=== PATIENT | male | born 1940 | race Asian ===

== ENCOUNTER → 2016-05-04 | Outpatient (CLI) | payer OTHER ==
[~2016-05-04] MED LIST: ALLO300T2 PO; ATEN-171 PO; GLC500 PO; GLIP2.5T11 PO; HYDR-4079 PO; LISI10TA PO; LRS10 PO; NRN/300 PO; PANT1TAB48 PO; POTA-335 PO; TAMS0.4C59 PO
[2016-05-04 12:48] LABS: BASO % 0.6 %; BASO ABS # 0.04 K/uL (0-0.2); COMPLETE YES; EOS % 1.7 %; HEMATOCRIT 43.8 % (42-52); IG% 0.3 %; LYMPH % 24.7 %; LYMPH ABS # 1.79 K/uL (1.2-3.4); MEAN CELL VOLUME 84.9 fL (80-100); MEAN CORPUSCULAR HEMOGLOBIN 29.8 pg (25-34); MEAN CORPUSCULAR HGB CONC 35.2 g/dl (32-36); MEAN PLATELET VOLUME 9.5 fL (7.4-10.4); MONO % 8.8 %; NEUT % 63.9 %; PLATELET COUNT 264 K/uL (130-400); RED BLOOD COUNT 5.16 M/uL (4.7-6.1); WHITE BLOOD COUNT 7.26 K/uL (4.8-10.8)
[2016-05-04 13:07] LABS: ESTIMATED AVERAGE GLUCOSE 126 mg/dl; HA1C FLAG Normal (Normal)
[2016-05-04 13:12] LABS: BLOOD UREA NITROGEN 24 mg/dl (7-18); BUN/CREATININE RATIO 19.8 (10-20); CALCIUM 9.3 mg/dl (8.5-10.1); CARBON DIOXIDE 29 mmol/L (21-32); CHLORIDE 103 mmol/L (98-107); GLUCOSE 137 mg/dl (70-99); POTASSIUM 3.6 mmol/L (3.5-5.1); SODIUM 140 mmol/L (136-145)
== END | disposition home or self-care (01) ==
LOC: C.LABPBG 10:49
PROVIDERS: ATTEND Internal Medicine Geriatric Medicine
DX: M19.90 Unspecified osteoarthritis, unspecified site (principal); I10 Essential (primary) hypertension; E11.9 Type 2 diabetes mellitus without complications; E78.5 Hyperlipidemia, unspecified; M10.9 Gout, unspecified; K27.9 Peptic ulcer, site unspecified, unspecified as acute or chronic, without hemorrhage or perforation

== ENCOUNTER → 2016-06-16 | Outpatient (CLI) | payer OTHER ==
[~2016-06-16] MED LIST changes: -GLC500 PO
[2016-06-16 11:03] LABS: CHOLESTEROL/HDL RATIO 5.9
== END | disposition home or self-care (01) ==
LOC: C.LABBC 08:21
PROVIDERS: ATTEND Physician Assistant Medical
DX: E11.9 Type 2 diabetes mellitus without complications (principal)

== ENCOUNTER → 2016-11-09 | Outpatient (CLI) | payer OTHER ==
[~2016-11-09] MED LIST changes: -NRN/300 PO
== END | disposition home or self-care (01) ==
LOC: C.PATHSPEC 08:31
PROVIDERS: ATTEND Internal Medicine Geriatric Medicine
DX: L57.0 Actinic keratosis (principal)

== ENCOUNTER → 2016-11-10 | Outpatient (CLI) | payer OTHER ==
[2016-11-10 12:47] LABS: BLOOD UREA NITROGEN 18 mg/dl (7-18); BUN/CREATININE RATIO 17.5 (10-20); CALCIUM 9.6 mg/dl (8.5-10.1); CARBON DIOXIDE 29 mmol/L (21-32); CHLORIDE 103 mmol/L (98-107); CHOLESTEROL 168 mg/dl (0-200); GLUCOSE 128 mg/dl (70-99); POTASSIUM 3.8 mmol/L (3.5-5.1); SODIUM 139 mmol/L (136-145); TRIGLYCERIDES 359 mg/dl (0-150); VERY LOW DENSITY LIPOPROT CALC 72 mg/dl
[2016-11-10 12:57] LABS: CHOLESTEROL/HDL RATIO 5.4; HDL CHOLESTEROL 31 mg/dl; LDL CHOLESTEROL CALCULATED 65 mg/dl
[2016-11-10 13:30] LABS: URINE PROTIEN/CREAT RATIO 0.1 (0-0.2); URINE TOTAL PROTEIN 13.4 mg/dl (0-11.9)
[2016-11-10 13:50] LABS: ESTIMATED AVERAGE GLUCOSE 157 mg/dl; HA1C FLAG Normal (Normal)
== END | disposition home or self-care (01) ==
LOC: C.LABPBG 08:49
PROVIDERS: ATTEND Internal Medicine Geriatric Medicine
DX: I10 Essential (primary) hypertension (principal); E11.9 Type 2 diabetes mellitus without complications; M54.2 Cervicalgia; E78.5 Hyperlipidemia, unspecified; M48.02 Spinal stenosis, cervical region

== ENCOUNTER 2017-02-25 10:51 | Emergency (ER) | payer OTHER ==
[~2017-02-25] VITALS: Ht 175.3 cm; Wt 79.9 kg
[~2017-02-25 10:51] MED LIST changes: +PANT1TAB3 PO; -PANT1TAB48 PO
[2017-02-25 10:56] VITALS: TEMP 36.6; Ht 175.3 cm; Wt 79.9 kg
[2017-02-25] MEDS ORDERED: ATEN50TA21 PO (11:03)
[2017-02-25] MEDS ORDERED: BACL10TA PO (11:03)
[2017-02-25] MEDS ORDERED: AMR2 PO (11:03)
[2017-02-25] MEDS ORDERED: POTA20TA13 PO (11:03)
[2017-02-25] MEDS ORDERED: OXYC-106 PO (11:03)
--- NOTE | 2017-02-25 11:55 | EMERGENCY ROOM VISIT NOTE ---
History Report prepared by Frandy: Elliott Saucedo Under the Supervision of: Dr. Ravin Huang M.D. First contact with patient: 11:46 Chief Complaint: ABDOMINAL PAIN Stated Complaint: STOMACH PAIN X3 DAYS Nursing Triage Summary: pt reports abdominal pain X 3 days intermittently denies NVD History of Present Illness The patient is a 76 year old male who presents to the Emergency Room with complaints of severe, intermittent abdominal pain beginning three days ago. The patient states he has never had these symptoms before. He reports he has tried Valium and Percocet for pain, but it is not helping. The patient denies blood in his stool, trouble urinating, history of diverticulitis, and a history of abdominal surgeries. He notes he still has his appendix and gallbladder. Source of History: patient Onset: three days ago Position: abdomen Symptom Intensity: severe Timing: intermittent Associated Symptoms: No urinary symptoms Note: Denies: blood in stool Review of Systems See HPI for pertinent positives & negatives. A total of 10 systems reviewed and were otherwise negative. 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 Social History Smoking Status: Never Smoker Marital Status: Occupation Status: employed Current/Historical Medications Scheduled Allopurinol (Zyloprim), 300 MG PO DAILY Atenolol & Chlorthalidone (Tenoretic 50MG/25MG), 1 TAB PO DAILY Baclofen (Lioresal), 10 MG PO DAILY Glimepiride (Glimepiride), 1 MG PO DAILY Lisinopril (Prinivil), 10 MG PO DAILY Potassium Chloride Microencaps (Potassium Chloride Er), 20 MEQ PO DAILY Tamsulosin Hcl (Flomax), 0.4 MG PO QPM Scheduled PRN Oxycodone/Acetaminophen 10MG/325MG (Percocet 10MG/325MG), 1 TAB PO Q6 PRN for Pain Pantoprazole (Protonix), 40 MG PO BID PRN for Indigestion Allergies Coded Allergies: Sulfa Drugs (Unverified Allergy, Mild, 02/25/17) Sulfamethoxazole (Unverified Allergy, Mild, 02/25/17) Trimethoprim (Unverified Allergy, Mild, 02/25/17) Gentamicin (Verified Allergy, Unknown, ., 02/25/17) Uncoded Allergies: [id number] (Allergy, Mild, 12/09/14) [id number] (Allergy, Mild, 12/09/14) [id number] (Allergy, Mild, 12/09/14) [id number] (Allergy, Unknown, ., 12/09/14) Physical Exam Vital Signs Date Time Temp Pulse Resp B/P (MAP) Pulse Ox O2 Delivery O2 Flow Rate FiO2 02/25/17 14:07 69 18 148/80 98 Room Air 02/25/17 12:10 83 18 153/103 97 Room Air 02/25/17 10:56 36.6 84 18 170/88 97 Room Air Physical Exam GENERAL: Patient is a healthy-appearing well-nourished 76 year old male. HEAD: Normocephalic atraumatic EYES: Ocular movements intact pupils equal and react to light OROPHARYNX mucous membranes are moist no exudates present no erythema or edema present NECK: Supple no nuchal rigidity CHEST: Good equal expansion LUNGS: Clear and equal to auscultation CARDIAC: Normal S1 and S2 ABDOMEN: Soft nontender no guarding BACK: No CVA tenderness EXTREMITIES: No pain upon palpation normal muscle strength in all groups no clubbing cyanosis or edema NEURO: Patient is following commands and answering questions appropriately. Alert and oriented x3 Cranial Nerves 2-12 grossly intact Medical Decision & Procedures ER Provider Diagnostic Interpretation: Radiology results as stated below per my review and radiologist interpretation: ABD/PELVIS WITHOUT FOR STONE HISTORY: 76 years-old Male Pt c/o left sided flank pain acute left-sided flank pain COMPARISON: None available TECHNIQUE: Multiple axial CT images of the abdomen and pelvis were obtained without contrast. A dose lowering technique was used consistent with the principals of ALARA. FINDINGS: Lung bases are generally clear with minimal linear subsegmental atelectasis or scarring of the left lung base. There is no pneumatosis or pneumoperitoneum identified. Imaged inferior cardiac chambers are unremarkable with coronary arterial disease. Mild fatty infiltration of the liver. Nonspecific calcification of the posterior right hepatic lobe. Indeterminate 8 mm low attenuating lesion of the hepatic dome suggests possible hepatic cyst. Spleen, gallbladder and right adrenal gland are unremarkable. Punctate calcification of the left adrenal gland may reflect prior hemorrhage. There is at least moderate diffuse pancreatic atrophy. 2.9 cm low attenuating lesion of the interpolar left kidney laterally suggests cyst with similar appearing 1.4 cm lesion noted within the superior pole. There is no renal calculi or hydronephrosis. Bilateral ureters are within normal limits. Urinary bladder is partially collapsed. The prostate is mildly enlarged. Moderate atherosclerosis of the aorta. Tortuosity of the aorta without definite aneurysm. Small duodenal diverticulum. No bowel obstruction or focal bowel wall thickening identified. Mild sigmoid diverticulosis without diverticulitis. Scattered air-fluid levels are noted throughout the large bowel. The appendix appears normal. Soft tissues are unremarkable. Heterogeneous appearance of the bones with severe multilevel discogenic degenerative changes of the lumbar spine. IMPRESSION: 1. No acute intra-abdominal or intrapelvic abnormality identified, specifically no renal calculi or hydronephrosis. 2. No bowel obstruction. 3. Prostamegaly. 4. Mild fatty infiltration of the liver. 5. Mild colonic diverticulosis without diverticulitis. 6. Additional findings as above. The above report was generated using voice recognition software. It may contain grammatical, syntax or spelling errors. Electronically signed by: Juan Alberto Gunderson M.D. 02/25/2017 1:19 PM Dictated Date/Time: 02/25/2017 1:11 PM Laboratory Results 02/25/17 11:10 Red Blood Count 5.15, Mean Corpuscular Volume 85.4, Mean Corpuscular Hemoglobin 30.7, Mean Corpuscular Hemoglobin Concent 35.9, Mean Platelet Volume 9.4, Neutrophils (%) (Auto) 71.0, Lymphocytes (%) (Auto) 19.0, Monocytes (%) (Auto) 7.7, Eosinophils (%) (Auto) 1.7, Basophils (%) (Auto) 0.3, Neutrophils # (Auto) 6.15, Lymphocytes # (Auto) 1.65, Monocytes # (Auto) 0.67, Eosinophils # (Auto) 0.15, Basophils # (Auto) 0.03 02/25/17 11:10 Test 02/25/17 11:10 02/25/17 12:11 02/25/17 12:21 White Blood Count 8.68 K/uL (4.8-10.8) Red Blood Count 5.15 M/uL (4.7-6.1) Hemoglobin 15.8 g/dL (14.0-18.0) Hematocrit 44.0 % (42-52) Mean Corpuscular Volume 85.4 fL (80-100) Mean Corpuscular Hemoglobin 30.7 pg (25-34) Mean Corpuscular Hemoglobin Concent 35.9 g/dl (32-36) Platelet Count 206 K/uL (130-400) Mean Platelet Volume 9.4 fL (7.4-10.4) Neutrophils (%) (Auto) 71.0 % Lymphocytes (%) (Auto) 19.0 % Monocytes (%) (Auto) 7.7 % Eosinophils (%) (Auto) 1.7 % Basophils (%) (Auto) 0.3 % Neutrophils # (Auto) 6.15 K/uL (1.4-6.5) Lymphocytes # (Auto) 1.65 K/uL (1.2-3.4) Monocytes # (Auto) 0.67 K/uL (0.11-0.59) Eosinophils # (Auto) 0.15 K/uL (0-0.5) Basophils # (Auto) 0.03 K/uL (0-0.2) RDW Standard Deviation 39.9 fL (36.4-46.3) RDW Coefficient of Variation 12.8 % (11.5-14.5) Immature Granulocyte % (Auto) 0.3 % Immature Granulocyte # (Auto) 0.03 K/uL (0.00-0.02) Est Creatinine Clear Calc Drug Dose 48.7 ml/min Estimated GFR () 62.0 Estimated GFR (Non- 53.5 BUN/Creatinine Ratio 16.4 (10-20) Calcium Level 10.1 mg/dl (8.5-10.1) Total Bilirubin 1.0 mg/dl (0.2-1) Direct Bilirubin 0.2 mg/dl (0-0.2) Aspartate Amino Transf (AST/SGOT) 16 U/L (15-37) Alanine Aminotransferase (ALT/SGPT) 31 U/L (12-78) Alkaline Phosphatase 55 U/L (45-117) Total Protein 8.2 gm/dl (6.4-8.2) Albumin 4.6 gm/dl (3.4-5.0) Lipase 125 U/L (73-393) Bedside Hemoglobin 15.3 g/dl (14.0-18.0) Bedside Hematocrit 45 % (42-52) Bedside Sodium 139 mEq/L (135-144) Bedside Potassium 4.2 mEq/L (3.3-5.0) Bedside Chloride 98 mEq/L (101-112) Bedside Total CO2 28 mEq/l (24-31) Anion Gap 18.0 mmol/L (16-25) Bedside Blood Urea Nitrogen 22 mg/dl (7-18) Bedside Creatinine 1.1 mg/dl (0.6-1.3) Bedside Glucose (other) 154 mg/dl (70-99) Bedside Ionized Calcium (Radha) 1.28 mmol/l (1.12-1.32) Urine Color YELLOW Urine Appearance CLEAR (CLEAR) Urine pH 5.5 (4.5-7.5) Urine Specific Kennan 1.023 (1.000-1.030) Urine Protein NEG (NEG) Urine Glucose (UA) NEG (NEG) Urine Ketones 1+ (NEG) Urine Occult Blood TRACE (NEG) Urine Nitrite NEG (NEG) Urine Bilirubin NEG (NEG) Urine Urobilinogen NEG (NEG) Urine Leukocyte Esterase NEG (NEG) Urine WBC (Auto) 1-5 /hpf (0-5) Urine RBC (Auto) 0-4 /hpf (0-4) Urine Hyaline Casts (Auto) 1-5 /lpf (0-5) Urine Epithelial Cells (Auto) 0-5 /lpf (0-5) Urine Bacteria (Auto) NEG (NEG) Labs reviewed by ED physician. Medications Administered Medications (Trade) Dose Ordered Sig/Benson Route Start Time Stop Time Status Last Admin Dose Admin Ketorolac Tromethamine (Toradol Inj) 30 mg NOW STAT IV 02/25/17 12:18 02/25/17 12:19 DC 02/25/17 12:24 30 MG Ondansetron HCl (Zofran Inj) 4 mg NOW STAT IV 02/25/17 12:18 02/25/17 12:19 DC 02/25/17 12:24 4 MG Sodium Chloride 500 ml @ 999 mls/hr Q31M STAT IV 02/25/17 12:43 02/25/17 13:13 DC 02/25/17 12:43 999 MLS/HR ED Course 1150: Past medical records reviewed. The patient was evaluated in room C02B. A complete history and physical examination was performed. 1218: Ordered Ondansetron HCl 4mg IV, Ketorolac Tromethamine 30mg IV 1243: Ordered Sodium Chloride 500 ml @ 999 mls/hr IV 1352: Upon reexamination the patient is resting and feeling better. I discussed results and treatment plan with the patient. He verbalizes agreement and understanding. The patient is ready for discharge. Medical Decision Differential diagnosis: Etiologies such as appendicitis, diverticulitis, PUD, biliary pathology, UTI, pancreatitis, obstruction, mesenteric ischemia, aortic pathology, infections, inflammatory bowel disease, renal colic, as well as others were entertained. This is a 76-year-old male who presents emergency department complaining of abdominal pain which she describes as gas pain. Serial abdominal examinations were performed on the patient in the emergency department and at no time did the patient exhibit a surgical abdomen or even abdominal tenderness. Based on these findings, the patient also has a normal CBC renal profile liver profile as well as a normal lipase. He has a small amount of blood in his urine and based on his physical examination I felt that the patient could have a stone however the CAT scan of the abdomen pelvis is also normal. I do feel that the patient is well enough to be discharged home for follow-up with gastroenterology. I recommended a clear liquid diet for the next 48 hours. Patient and family were in agreement with the treatment plan. Medication Reconcilliation Current Medication List: was personally reviewed by me Blood Pressure Screening Patient's blood pressure: Elevated blood pressure Blood pressure disposition: Elevated BP felt to be situational Impression Primary Impression: Abdominal pain Scribe Attestation The scribe's documentation has been prepared under my direction and personally reviewed by me in its entirety. I confirm that the note above accurately reflects all work, treatment, procedures, and medical decision making performed by me. Departure Information Dispostion Home / Self-Care Referrals Agus Pino M.D. (PCP) Forms Call Back Authorization, HOME CARE DOCUMENTATION FORM, IMPORTANT VISIT INFORMATION Patient Instructions Abdominal Pain, ED Constipation, My [facility] Additional Instructions You have been examined and treated today on an emergency basis only. This is not a substitute for, or an effort to provide, complete comprehensive medical care. It is impossible to recognize and treat all injuries or illnesses in a single emergency department visit. It is therefore important that you follow up closely with Dr Pino. Call as soon as possible for an appointment. Thank you for your time and consideration. I look forward to speaking with you again soon. Please don't hesitate to call us if you have any questions. Problem Qualifiers Primary Impression: Abdominal pain Abdominal location: unspecified location Qualified Codes: R10.9 - Unspecified abdominal pain
[2017-02-25 11:58] LABS: BASO % 0.3 %; BASO ABS # 0.03 K/uL (0-0.2); COMPLETE YES; EOS % 1.7 %; IG% 0.3 %; LYMPH ABS # 1.65 K/uL (1.2-3.4); MEAN CELL VOLUME 85.4 fL (80-100); MEAN CORPUSCULAR HEMOGLOBIN 30.7 pg (25-34); MEAN CORPUSCULAR HGB CONC 35.9 g/dl (32-36); MEAN PLATELET VOLUME 9.4 fL (7.4-10.4); MONO % 7.7 %; PLATELET COUNT 206 K/uL (130-400); RED BLOOD COUNT 5.15 M/uL (4.7-6.1); WHITE BLOOD COUNT 8.68 K/uL (4.8-10.8)
[2017-02-25] MEDS ORDERED: OPTIRAY 320 IV PRN (12:00)
[2017-02-25 12:06] LABS: BUN/CREATININE RATIO 16.4 (10-20); CALCIUM 10.1 mg/dl (8.5-10.1); CREATININE 1.29 mg/dl (0.60-1.40)
[2017-02-25] MEDS ORDERED: ONDANSETRON INJ 2 MG/ML 2 ML VIAL IV STA (12:18)
[2017-02-25] MEDS ORDERED: KETOROLAC TROMETHAMINE 30 MG/ML VIAL IV STA (12:18)
[2017-02-25 12:38] LABS: ISTAT CREATININE 1.1 mg/dl (0.6-1.3); ISTAT HEMOGLOBIN 15.3 g/dl (14.0-18.0); ISTAT IONIZED CALCIUM 1.28 mmol/l (1.12-1.32)
[2017-02-25 12:39] LABS: MANUAL MICROSCOPIC REQUIRED? NO; REVIEW REQ? NO; URINE APPEARANCE CLEAR (CLEAR); URINE BILIRUBIN NEG (NEG); URINE COLOR YELLOW; URINE EPITHELIAL CELL AUTO 0-5 /lpf (0-5); URINE NITRITE NEG (NEG); URINE PH 5.5 (4.5-7.5); URINE SPECIFIC GRAVITY 1.023 (1.000-1.030); UROBILINOGEN NEG (NEG)
[2017-02-25] MEDS ORDERED: SODIUM CHLORIDE 0.9% 500ML 500 ML IV STA (12:43)
--- NOTE | 2017-02-25 13:20 | DIAGNOSTIC IMAGING REPORT ---
ABD/PELVIS WITHOUT FOR STONE HISTORY: 76 years-old Male Pt c/o left sided flank pain acute left-sided flank pain COMPARISON: None available TECHNIQUE: Multiple axial CT images of the abdomen and pelvis were obtained without contrast. A dose lowering technique was used consistent with the principals of SHARIF. FINDINGS: Lung bases are generally clear with minimal linear subsegmental atelectasis or scarring of the left lung base. There is no pneumatosis or pneumoperitoneum identified. Imaged inferior cardiac chambers are unremarkable with coronary arterial disease. Mild fatty infiltration of the liver. Nonspecific calcification of the posterior right hepatic lobe. Indeterminate 8 mm low attenuating lesion of the hepatic dome suggests possible hepatic cyst. Spleen, gallbladder and right adrenal gland are unremarkable. Punctate calcification of the left adrenal gland may reflect prior hemorrhage. There is at least moderate diffuse pancreatic atrophy. 2.9 cm low attenuating lesion of the interpolar left kidney laterally suggests cyst with similar appearing 1.4 cm lesion noted within the superior pole. There is no renal calculi or hydronephrosis. Bilateral ureters are within normal limits. Urinary bladder is partially collapsed. The prostate is mildly enlarged. Moderate atherosclerosis of the aorta. Tortuosity of the aorta without definite aneurysm. Small duodenal diverticulum. No bowel obstruction or focal bowel wall thickening identified. Mild sigmoid diverticulosis without diverticulitis. Scattered air-fluid levels are noted throughout the large bowel. The appendix appears normal. Soft tissues are unremarkable. Heterogeneous appearance of the bones with severe multilevel discogenic degenerative changes of the lumbar spine. IMPRESSION: 1. No acute intra-abdominal or intrapelvic abnormality identified, specifically no renal calculi or hydronephrosis. 2. No bowel obstruction. 3. Prostamegaly. 4. Mild fatty infiltration of the liver. 5. Mild colonic diverticulosis without diverticulitis. 6. Additional findings as above. The above report was generated using voice recognition software. It may contain grammatical, syntax or spelling errors. Electronically signed by: Juan Alberto Gunderson M.D. 02/25/2017 1:19 PM Dictated Date/Time: 02/25/2017 1:11 PM
[2017-02-25 14:07] VITALS: BP 148/80; PULSE 69; O2SAT 98
== END 2017-02-25 14:11 | disposition home or self-care (01) ==
LOC: C.EDB 10:52 → C.EDC 14:11
DX: R10.9 Unspecified abdominal pain (principal); M50.90 Cervical disc disorder, unspecified, unspecified cervical region; E11.9 Type 2 diabetes mellitus without complications; E78.5 Hyperlipidemia, unspecified; I10 Essential (primary) hypertension; Z79.899 Other long term (current) drug therapy

== ENCOUNTER → 2017-04-05 | Outpatient (CLI) | payer OTHER ==
[~2017-04-05] MED LIST changes: +AMR2 PO; -ATEN-171 PO; +ATEN50TA21 PO; +BACL10TA PO; -GLIP2.5T11 PO; -HYDR-4079 PO; -LRS10 PO; +OXYC-106 PO; -POTA-335 PO; +POTA20TA13 PO
[2017-04-05 13:01] LABS: BASO % 0.3 %; BASO ABS # 0.03 K/uL (0-0.2); EOS % 1.9 %; EOS ABS # 0.17 K/uL (0-0.5); HEMATOCRIT 41.4 % (42-52); HEMOGLOBIN 14.9 g/dL (14.0-18.0); IG# 0.04 K/uL (0.00-0.02); LYMPH % 23.5 %; LYMPH ABS # 2.11 K/uL (1.2-3.4); MEAN CELL VOLUME 86.8 fL (80-100); MEAN CORPUSCULAR HEMOGLOBIN 31.2 pg (25-34); MEAN PLATELET VOLUME 9.7 fL (7.4-10.4); MONO % 6.2 %; MONO ABS # 0.56 K/uL (0.11-0.59); NEUT % 67.7 %; NEUT ABS # 6.07 K/uL (1.4-6.5); PLATELET COUNT 253 K/uL (130-400); RED CELL DISTRIBUTION WIDTH CV 13.4 % (11.5-14.5); RED CELL DISTRIBUTION WIDTH SD 42.3 fL (36.4-46.3); WHITE BLOOD COUNT 8.98 K/uL (4.8-10.8)
[2017-04-05 13:04] LABS: ALBUMIN 4.1 gm/dl (3.4-5.0); ALT/SGPT 25 U/L (12-78); AST/SGOT 13 U/L (15-37); BLOOD UREA NITROGEN 28 mg/dl (7-18); CALCIUM 9.6 mg/dl (8.5-10.1); CARBON DIOXIDE 26 mmol/L (21-32); CREATININE 1.22 mg/dl (0.60-1.40); GLUCOSE 163 mg/dl (70-99); POTASSIUM 3.6 mmol/L (3.5-5.1); SODIUM 137 mmol/L (136-145)
[2017-04-05 13:13] LABS: HEMOGLOBIN A1C 7.2 % (4.5-5.6)
[2017-04-05 13:15] LABS: ALKALINE PHOSPHATASE 47 U/L (45-117); CHOLESTEROL 177 mg/dl (0-200); LDL CHOLESTEROL CALCULATED 94 mg/dl; TOTAL PROTEIN 7.5 gm/dl (6.4-8.2)
== END | disposition home or self-care (01) ==
LOC: C.LABPBG 09:23
PROVIDERS: ATTEND Internal Medicine Geriatric Medicine
DX: I10 Essential (primary) hypertension (principal); E11.9 Type 2 diabetes mellitus without complications; N40.1 Benign prostatic hyperplasia with lower urinary tract symptoms; E78.5 Hyperlipidemia, unspecified; M10.9 Gout, unspecified; R51 Headache; I70.0 Atherosclerosis of aorta

== ENCOUNTER 2017-06-15 08:17 | Emergency (ER) | payer OTHER ==
[~2017-06-15] VITALS: Ht 175.3 cm; Wt 83.3 kg
[2017-06-15 08:31] VITALS: TEMP 36.5; Ht 175.3 cm; Wt 83.3 kg
[2017-06-15] MEDS ORDERED: TAMS0.4C38 PO (08:54)
--- NOTE | 2017-06-15 09:28 | EMERGENCY ROOM VISIT NOTE ---
History Report prepared by Frandy: July Padilla Under the Supervision of: Dr. Ravin Huang M.D. First contact with patient: 08:40 Chief Complaint: IRREGULAR HEARTBEAT Stated Complaint: IRREGULAR HEART BEAT Nursing Triage Summary: pt reports "having a funny feeling in chest this AM , and I had an irregular heart beat" pt denies increased sob or radiation of pain pt reports taking asa 81mg X2 History of Present Illness The patient is a 76 year old male who presents to the Emergency Room with complaints of an episode of chest discomfort occurring this morning. The patient states he took his pulse this morning and felt his "heart beat was irregular". The patient reports he took two baby aspirin which relieved his chest discomfort. Presently, he denies any chest discomfort. He denies any chest discomfort with walking. He also denies any abdominal pain. The patient had an echocardiogram by Dr. Pino-Cardiology three years ago. Source of History: patient Onset: this morning Position: chest Quality: other (discomfort) Timing: other (episode) Modifying Factors (Relieving): other (ASA) Associated Symptoms: + chest pain, No abdominal pain Review of Systems See HPI for pertinent positives & negatives. A total of 10 systems reviewed and were otherwise negative. 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 Social History Smoking Status: Never Smoker Marital Status: Housing Status: lives with significant other Occupation Status: employed Current/Historical Medications Scheduled Allopurinol (Zyloprim), 300 MG PO DAILY Atenolol & Chlorthalidone (Tenoretic 50MG/25MG), 1 TAB PO DAILY Baclofen (Lioresal), 10 MG PO DAILY Glimepiride (Glimepiride), 1 MG PO DAILY Lisinopril (Prinivil), 10 MG PO DAILY Potassium Chloride Microencaps (Potassium Chloride Er), 20 MEQ PO DAILY Tamsulosin Hcl (Flomax), 0.4 MG PO DAILY Scheduled PRN Oxycodone/Acetaminophen 10MG/325MG (Percocet 10MG/325MG), 1 TAB PO Q6 PRN for Pain Allergies Coded Allergies: Sulfa Drugs (Unverified Allergy, Mild, 4/4/18) Sulfamethoxazole (Unverified Allergy, Mild, 06/15/17) Trimethoprim (Unverified Allergy, Mild, 06/15/17) Gentamicin (Verified Allergy, Unknown, ., 06/15/17) Physical Exam Vital Signs Date Time Temp Pulse Resp B/P (MAP) Pulse Ox O2 Delivery O2 Flow Rate FiO2 06/15/17 10:23 52 20 116/64 96 06/15/17 08:39 54 06/15/17 08:31 36.5 53 18 136/76 96 Room Air Physical Exam GENERAL: Awake, alert, well-appearing, in no acute distress HENT: Normocephalic, atraumatic. Oropharynx unremarkable. EYES: Normal conjunctiva. Sclera non-icteric. NECK: Supple. No nuchal rigidity. FROM. No JVD. RESPIRATORY: Clear to auscultation. CARDIAC: Regular rate, normal rhythm. Extremities warm and well perfused. Pulses equal. ABDOMEN: Soft, non-distended. No tenderness to palpation. No rebound or guarding. No masses. RECTAL: Deferred. MUSCULOSKELETAL: Chest examination reveals no tenderness. The back is symmetrical on inspection without obvious abnormality. There is no CVA tenderness to palpation. No joint edema. LOWER EXTREMITIES: Calves are equal size bilaterally and non-tender. No edema. No discoloration. NEURO: Normal sensorium. No sensory or motor deficits noted. SKIN: No rash or jaundice noted. Medical Decision & Procedures ER Provider Diagnostic Interpretation: Radiology results as stated below per my review and radiologist interpretation: CHEST ONE VIEW PORTABLE FINDINGS: The heart is borderline enlarged. There is no failure. There is no focal pulmonary consolidation. There are no pleural effusions. There are minor basilar atelectatic changes. IMPRESSION: No active disease in the chest. Electronically signed by: Pj Cerrato M.D. Laboratory Results 06/15/17 08:53 Red Blood Count 5.03, Mean Corpuscular Volume 85.1, Mean Corpuscular Hemoglobin 30.2, Mean Corpuscular Hemoglobin Concent 35.5, Mean Platelet Volume 9.1, Neutrophils (%) (Auto) 58.0, Lymphocytes (%) (Auto) 29.9, Monocytes (%) (Auto) 8.6, Eosinophils (%) (Auto) 2.6, Basophils (%) (Auto) 0.4, Neutrophils # (Auto) 4.86, Lymphocytes # (Auto) 2.50, Monocytes # (Auto) 0.72, Eosinophils # (Auto) 0.22, Basophils # (Auto) 0.03 06/15/17 08:53 Test 06/15/17 08:53 White Blood Count 8.37 K/uL (4.8-10.8) Red Blood Count 5.03 M/uL (4.7-6.1) Hemoglobin 15.2 g/dL (14.0-18.0) Hematocrit 42.8 % (42-52) Mean Corpuscular Volume 85.1 fL (80-100) Mean Corpuscular Hemoglobin 30.2 pg (25-34) Mean Corpuscular Hemoglobin Concent 35.5 g/dl (32-36) Platelet Count 219 K/uL (130-400) Mean Platelet Volume 9.1 fL (7.4-10.4) Neutrophils (%) (Auto) 58.0 % Lymphocytes (%) (Auto) 29.9 % Monocytes (%) (Auto) 8.6 % Eosinophils (%) (Auto) 2.6 % Basophils (%) (Auto) 0.4 % Neutrophils # (Auto) 4.86 K/uL (1.4-6.5) Lymphocytes # (Auto) 2.50 K/uL (1.2-3.4) Monocytes # (Auto) 0.72 K/uL (0.11-0.59) Eosinophils # (Auto) 0.22 K/uL (0-0.5) Basophils # (Auto) 0.03 K/uL (0-0.2) RDW Standard Deviation 38.9 fL (36.4-46.3) RDW Coefficient of Variation 12.6 % (11.5-14.5) Immature Granulocyte % (Auto) 0.5 % Immature Granulocyte # (Auto) 0.04 K/uL (0.00-0.02) Anion Gap 7.0 mmol/L (3-11) Est Creatinine Clear Calc Drug Dose 57.7 ml/min Estimated GFR () 76.0 Estimated GFR (Non- 65.6 BUN/Creatinine Ratio 18.8 (10-20) Calcium Level 9.1 mg/dl (8.5-10.1) Total Bilirubin 0.3 mg/dl (0.2-1) Direct Bilirubin < 0.1 mg/dl (0-0.2) Aspartate Amino Transf (AST/SGOT) 16 U/L (15-37) Alanine Aminotransferase (ALT/SGPT) 27 U/L (12-78) Alkaline Phosphatase 39 U/L (45-117) Total Creatine Kinase 75 U/L (39-308) Creatine Kinase MB 2.4 ng/ml (0.5-3.6) Creatine Kinase MB Ratio 3.2 (0-3.0) Troponin I < 0.015 ng/ml (0-0.045) Pro-B-Type Natriuretic Peptide 140 pg/ml (0-1800) Total Protein 7.0 gm/dl (6.4-8.2) Albumin 3.7 gm/dl (3.4-5.0) Lipase 125 U/L (73-393) Labs reviewed by ED physician. ECG Per My Interpretation Indication: palpitations Rate (beats per minute): 56 Rhythm: sinus bradycardia Findings: 1st degree AV block, RBBB (incomplete), ST elevation Comparison ECG Date: 04/24/14 Change: ST elevations are not new. ED Course 0912: Past medical records reviewed. The patient was evaluated in room B7. A complete history and physical examination was performed. 1020: I updated the patient on his test results. 1026: Upon reexamination the patient is resting comfortably. I discussed results and treatment plan with the patient.He verbalizes agreement and understanding. The patient is ready for discharge. Medical Decision Differential diagnosis: Etiologies such as cardiac ischemia, aortic dissection, pulmonary embolism, pneumonia, pneumothorax, musculoskeletal, infections, pericarditis, myocarditis , esophageal rupture, gastrointestinal, as well as others were entertained. This is a 76-year-old male who presents emergency department complaining of an irregular heartbeat. Upon arrival to the emergency department the patient is in a normal sinus rhythm. He was placed in the conveyor monitor and at no time over his 2 hour visit did he exhibit an irregular heartbeat. He has a normal CK -MB and troponin. The patient at this point wishes to be discharged home however I felt that the patient would benefit from Holter monitor. He was sent to cardiopulmonary lab for Holter monitor. I asked for the patient follow-up with Dr. Stiles's office and stress no strenuous activity until follow-up. Medication Reconcilliation Current Medication List: was personally reviewed by me Blood Pressure Screening Patient's blood pressure: Normal blood pressure Impression Primary Impression: Palpitations Scribe Attestation The scribe's documentation has been prepared under my direction and personally reviewed by me in its entirety. I confirm that the note above accurately reflects all work, treatment, procedures, and medical decision making performed by me. Departure Information Dispostion Home / Self-Care Referrals No Doctor, Assigned (PCP) Forms HOME CARE DOCUMENTATION FORM, IMPORTANT VISIT INFORMATION Patient Instructions ED Palpitations, My [facility] Additional Instructions Follow up with DR Stiles's office within one week No strenuous activity until follow up Go to Cardiopulmonary lab for a Holter monitor You have been examined and treated today on an emergency basis only. This is not a substitute for, or an effort to provide, complete comprehensive medical care. It is impossible to recognize and treat all injuries or illnesses in a single emergency department visit. It is therefore important that you follow up closely with Dr Pino. Call as soon as possible for an appointment. Thank you for your time and consideration. I look forward to speaking with you again soon. Please don't hesitate to call us if you have any questions.
[2017-06-15 09:31] LABS: BASO % 0.4 %; BASO ABS # 0.03 K/uL (0-0.2); EOS % 2.6 %; EOS ABS # 0.22 K/uL (0-0.5); HEMATOCRIT 42.8 % (42-52); HEMOGLOBIN 15.2 g/dL (14.0-18.0); IG# 0.04 K/uL (0.00-0.02); LYMPH % 29.9 %; MEAN CELL VOLUME 85.1 fL (80-100); MEAN CORPUSCULAR HEMOGLOBIN 30.2 pg (25-34); MEAN CORPUSCULAR HGB CONC 35.5 g/dl (32-36); MEAN PLATELET VOLUME 9.1 fL (7.4-10.4); MONO % 8.6 %; MONO ABS # 0.72 K/uL (0.11-0.59); NEUT ABS # 4.86 K/uL (1.4-6.5); PLATELET COUNT 219 K/uL (130-400); RED CELL DISTRIBUTION WIDTH CV 12.6 % (11.5-14.5); RED CELL DISTRIBUTION WIDTH SD 38.9 fL (36.4-46.3); WHITE BLOOD COUNT 8.37 K/uL (4.8-10.8)
--- NOTE | 2017-06-15 09:34 | DIAGNOSTIC IMAGING REPORT ---
CHEST ONE VIEW PORTABLE CLINICAL HISTORY: Atypical chest pain and palpitations COMPARISON STUDY: 04/24/2014 FINDINGS: The heart is borderline enlarged. There is no failure. There is no focal pulmonary consolidation. There are no pleural effusions. There are minor basilar atelectatic changes.[ IMPRESSION: No active disease in the chest. Electronically signed by: Pj Cerrato M.D. 06/15/2017 9:33 AM Dictated Date/Time: 06/15/2017 9:32 AM
[2017-06-15 09:41] LABS: ALBUMIN 3.7 gm/dl (3.4-5.0); ALT/SGPT 27 U/L (12-78); BLOOD UREA NITROGEN 21 mg/dl (7-18); CALCIUM 9.1 mg/dl (8.5-10.1); CARBON DIOXIDE 26 mmol/L (21-32); CREATININE 1.09 mg/dl (0.60-1.40); GLUCOSE 127 mg/dl (70-99); LIPASE 125 U/L (73-393); POTASSIUM 3.7 mmol/L (3.5-5.1); SODIUM 136 mmol/L (136-145)
[2017-06-15 09:47] LABS: ALKALINE PHOSPHATASE 39 U/L (45-117); AST/SGOT 16 U/L (15-37); CKMB 2.4 ng/ml (0.5-3.6)
[2017-06-15 10:23] VITALS: BP 116/64; PULSE 52; O2SAT 96
== END 2017-06-15 10:26 | disposition home or self-care (01) ==
LOC: C.EDB 08:18
DX: R00.2 Palpitations (principal); I10 Essential (primary) hypertension; E78.5 Hyperlipidemia, unspecified; E11.9 Type 2 diabetes mellitus without complications; M50.90 Cervical disc disorder, unspecified, unspecified cervical region; Z88.1 Allergy status to other antibiotic agents; Z88.2 Allergy status to sulfonamides; Z88.8 Allergy status to other drugs, medicaments and biological substances

== ENCOUNTER 2017-10-21 01:29 | Emergency (ER) | payer OTHER ==
[~2017-10-21] VITALS: Ht 175.3 cm; Wt 74.4 kg
[~2017-10-21 01:29] MED LIST changes: -LISI10TA PO; +LISI20TA3 PO; +MECL1TAB42 PO; +MORP-87 PO; +OMEP-334 PO; -OXYC-106 PO; +OXYC-594 PO; -PANT1TAB3 PO; +TAMS0.4C38 PO; -TAMS0.4C59 PO
[2017-10-21 01:32] VITALS: Ht 175.3 cm; Wt 74.4 kg
[2017-10-21] MEDS ORDERED: HYDROmorphone INJ 1 MG/ML SYR IM STA ×2 (01:54→02:45)
[2017-10-21] MEDS ORDERED: LIDODERM (LIDOCAINE) PATCH 5% TD STA (01:54)
--- NOTE | 2017-10-21 02:02 | EMERGENCY ROOM VISIT NOTE ---
History Report prepared by Frandy: Elliott Saucedo Under the Supervision of: Dr. Venecia Alvarez D.O. First contact with patient: 01:40 Chief Complaint: NECK PAIN Stated Complaint: NECK PAIN SINCE THIS AFTERNOON History of Present Illness The patient is a 77 year old male who presents to the Emergency Room with complaints of constant neck pain beginning two days ago. He currently rates his discomfort an 8.5/10 in severity. The patient states he has both pain and spasms. He reports he has degenerative spondylosis. The patient notes he has had epidermal shots, and he has not had surgery. He states his pain is more on the left side and shoulder. The patient reports he has been seeing Dr. Cassidy , Rheumatology and has had neck pain for 20 years. He notes he was given a medication for one month, and he accidently over took his medication. The patient states he has a pain contract and takes 30mg of Morphine twice a day and 10mg of oxycodone every six hours. He reports he called his doctor for a refill and was told he had to wait until Tuesday to picker feeder his medication. He reports he has been on high doses of pain medication for a while. The patient notes he has been taking Tylenol and Flexural for the past two days without relief. He states he has a history of diabetes, and his sugars have been under control. The patient reports an additional history of stomach bleeds and states he cannot take NSAIDs. He denies fevers, chills, nausea, vomiting, diarrhea, and a history of kidney disease. Source of History: patient Onset: two days ago Position: neck Symptom Intensity: 8.5/10 Timing: constant Associated Symptoms: No fevers, No chills, No nausea, No vomiting, No diarrhea Review of Systems See HPI for pertinent positives & negatives. A total of 10 systems reviewed and were otherwise negative. 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 (3) Diabetes (4) Hyperlipidemia Nec/Nos (5) Hypertension Nos Family History Diabetes mellitus Lung disease Social History Smoking Status: Never Smoker Marital Status: Housing Status: lives with significant other Occupation Status: employed Current/Historical Medications Scheduled Allopurinol (Zyloprim), 300 MG PO NOON Atenolol & Chlorthalidone (Tenoretic 50MG/25MG), 1 TAB PO NOON Baclofen (Lioresal), 10 MG PO NOON Glimepiride (Glimepiride), 2 MG PO QAM Lisinopril (Prinivil), 20 MG PO NOON Meclizine Hcl (Meclizine Hcl), 25 MG PO BID Morphine Sulfate (Morphine Sulfate Cr), 30 MG PO BID Omeprazole (Omeprazole Dr), 40 MG PO QAM Potassium Chloride Microencaps (Potassium Chloride Er), 20 MEQ PO NOON Tamsulosin Hcl (Flomax), 0.4 MG PO HS Scheduled PRN Oxycodone/Acetaminophen 10MG/325MG (Percocet 10MG/325MG), 1 TAB PO Q6 PRN for Pain Allergies Coded Allergies: Sulfa Drugs (Unverified Allergy, Mild, EYE DROP - RED IRITATION, 09/13/17) Sulfamethoxazole (Verified Allergy, Mild, EYE DROP - RED IRITATION, 09/13/17 ) Trimethoprim (Verified Allergy, Mild, EYE DROP - RED IRITATION, 09/13/17) Gentamicin (Verified Allergy, Unknown, EYE DROP - RED IRITATION, 09/13/17) Physical Exam Vital Signs Date Time Temp Pulse Resp B/P (MAP) Pulse Ox O2 Delivery O2 Flow Rate FiO2 10/21/17 03:50 53 95 10/21/17 02:56 57 16 122/61 97 Room Air 10/21/17 01:32 66 18 143/73 96 Room Air Physical Exam GENERAL: alert, uncomfortable appearing, well nourished, mild distress, non- toxic EYE EXAM: normal conjunctiva, PERRL and EOM's grossly intact OROPHARYNX: no exudate, no erythema, lips, buccal mucosa, and tongue normal and mucous membranes are moist NECK: supple, no nuchal rigidity, no adenopathy, mild pain with palpation to the left paraspinal muscles into the left trapezius. Mild hypertonicity noted. Full ROM. No midline tenderness to palpation. LUNGS: Clear to auscultation. Normal chest wall mechanics, no w/r/r HEART: no murmurs, S1 normal and S2 normal ABDOMEN: abdomen soft, non-tender, normo-active bowel sounds, no masses, no rebound or guarding. BACK: Back is symmetrical on inspection and there is no deformity, no midline tenderness, no CVA tenderness. SKIN: no rashes and no bruising UPPER EXTREMITIES: upper extremities are grossly normal. Full range of motion, normal pulses. LOWER EXTREMITIES: No pitting edema. Full range of motion, normal pulses. NEURO EXAM: Normal sensorium, cranial nerves II-XII grossly intact, normal speech, no gross weakness of arms, no gross weakness of legs. No ataxia and unsteady gait. No facial droop. Medical Decision & Procedures Laboratory Results Test 10/21/17 03:05 Bedside Glucose 195 mg/dl (70-99) Laboratory results per my review. Medications Administered Medications (Trade) Dose Ordered Sig/Benson Route Start Time Stop Time Status Last Admin Dose Admin Hydromorphone HCl (Dilaudid Inj) 1 mg NOW STAT IM 10/21/17 01:54 10/21/17 01:55 DC 10/21/17 02:09 1 MG Lidocaine (Lidoderm Patch 5%) 1 patch NOW STAT TD 10/21/17 01:54 10/21/17 01:55 DC 10/21/17 02:08 1 PATCH Hydromorphone HCl (Dilaudid Inj) 1 mg NOW STAT IM 10/21/17 02:45 10/21/17 02:46 DC 10/21/17 02:54 1 MG ED Course 0146: The patient was evaluated in room B11B. A complete history and physical exam was performed. 0154: Ordered Lidocaine 1 patch TD, Hydromorphone HCl 1mg IM 0244: I reevaluated the patient. His pain has decreased, but he is still having some pain. 0245: Ordered Hydromorphone HCl 1mg IM 0315: Ordered [place] 5/325mg 1 homepack PO 0321: Upon reevaluation, the patient is feeling better and pain free. I discussed the findings and the treatment plan with the patient. He verbalizes agreement and understanding. The patient was discharged home. Medical Decision The patient is a 77 year old male who presents to the ED with complaints of chronic neck pain beginning two days ago. Differential diagnoses include: chronic musculoskeletal pain, DDD, herniated disk, diskitis, cervical radiculopathy, muscle strain, cervical sprain, trauma. Patient well-appearing here despite complaints. Patient with a 20 year history of narcotic use for chronic neck pain due to degenerative disc disease per his report. Patient out of his medications for the last 2 days. No other overt withdrawal symptoms including GI symptoms, dizziness, or sweating. Patient given 2 IM injections here and a Lidoderm patch placed. Patient given a hydrocodone to go home with. Discussed with patient appropriate use of medications as they are prescribed by his pain management, follow-up with family doctor, symptoms to watch and return for, he verbalized understanding was agreeable to plan. Patient denies any recent trauma, I do not suspect occult vascular pathology, discitis, infection, no other paresthesias or symptoms to suggest cervical radiculopathy or brachial plexitis, I do not suspect additional neuropathology including cerebellar infarct or bleed or subarachnoid hemorrhage. Patient ambulatory with a steady gait, verbalized understanding of all results and was agreeable with plan. Medication Reconcilliation Current Medication List: was personally reviewed by me Blood Pressure Screening Patient's blood pressure: Normal blood pressure Blood pressure disposition: Did not require urgent referral Impression Primary Impression: Neck pain Additional Impressions: Chronic pain Chronic, continuous use of opioids Scribe Attestation The scribe's documentation has been prepared under my direction and personally reviewed by me in its entirety. I confirm that the note above accurately reflects all work, treatment, procedures, and medical decision making performed by me. Departure Information Dispostion Home / Self-Care Referrals Agus Pino M.D. (PCP) Forms HOME CARE DOCUMENTATION FORM, IMPORTANT VISIT INFORMATION, WORK / SCHOOL INSTRUCTIONS Patient Instructions ED Chronic Pain Management, ED Neck Pain No Trauma, My [facility] Additional Instructions Please follow-up with your pain management doctor. Please take your chronic medications only as prescribed. Do not take extra. If you feel your pain is worsening or you have other new and concerning symptoms, please return the emergency room, and also please discuss these with your regular doctor. Please do not drive while taking narcotics, and avoid alcohol use. Problem Qualifiers Additional Impressions: Chronic pain Chronic pain type: other chronic pain Qualified Codes: G89.29 - Other chronic pain
[2017-10-21] MEDS ORDERED: OMEP40CA41 PO (02:45)
[2017-10-21 02:56] VITALS: BP 122/61
[2017-10-21] MEDS ORDERED: NORCO 5/325MG HOME PACK PO ONE (03:15)
[2017-10-21 03:50] VITALS: PULSE 53; O2SAT 95
== END 2017-10-21 03:51 | disposition home or self-care (01) ==
LOC: C.EDB 01:30
DX: M54.2 Cervicalgia (principal); G89.29 Other chronic pain; F11.90 Opioid use, unspecified, uncomplicated; E11.9 Type 2 diabetes mellitus without complications; E78.5 Hyperlipidemia, unspecified; I10 Essential (primary) hypertension; Z83.3 Family history of diabetes mellitus; Z83.6 Family history of other diseases of the respiratory system; Z79.899 Other long term (current) drug therapy; Z88.2 Allergy status to sulfonamides; Z88.8 Allergy status to other drugs, medicaments and biological substances